=== PATIENT | female | born 1955 | race Caucasian/White ===

== ENCOUNTER 2021-12-23 09:56 | Outpatient (REF) | payer MEDICARE, SELFPAY ==
[2021-12-23 13:31] LABS: MANUAL DIFF FLAG NO
[2021-12-23 13:40] LABS: Basophils Absolute Auto 0.1 X10*3/uL (0.0-0.2); Eosinophils Absolute Auto 0.3 X10*3/uL (0.0-0.4); Eosinophils Percent Auto 4.1 % (0-4); Hematocrit 38.6 % (37.0-47.0); Hemoglobin 11.6 g/dl (12.0-16.0); Imm Gran Abs Auto 0.04 X10*3/uL (0.00-0.03); Imm Gran Pct Auto 0.6 % (0.0-0.4); Lymphocytes Absolute Auto 1.5 X10*3/uL (1.2-4.9); Lymphocytes Percent Auto 21.9 % (20-40); Mean Corpuscular HGB Conc 30.1 g/dl (31.0-35.0); Mean Corpuscular Hemoglobin 25.5 pg (27.0-33.0); Mean Corpuscular Volume 84.8 fL (80.0-98.0); Mean Platelet Volume 12.1 fL (9.4-12.3); Monocytes Absolute Auto 0.5 X10*3/uL (0.1-1.2); Monocytes Percent Auto 7.7 % (2-11); Neutrophils Absolute Auto 4.6 x10*3/uL (2.0-8.3); Neutrophils Percent Auto 64.7 % (45-73); Platelet Count 270 X10*3/uL (160-400); Red Blood Count 4.55 X10*6/uL (4.20-5.50); Red Cell Distribution Width 15.9 % (11.0-16.0)
[2021-12-23 14:20] LABS: Iron 50 mcg/dL (30-160); Percent Iron Saturation 12 % (15-50); Total Iron Binding Capacity 418 mcg/dL (228-428); Unsaturated Iron Binding 368 ug/dL
[2021-12-23 14:40] LABS: Vitamin B12 292 pg/mL (200-900)
[2021-12-23 14:42] LABS: Ferritin 13 ng/mL (10-250)
[2021-12-25 15:17] LABS: Immunoglobulin A 337 mg/dL (70-320)
[2021-12-26 08:27] LABS: Gliadin Deamidated IgA Ab <1.0 U/mL; Gliadin Deamidated IgG Ab <1.0 U/mL
[2021-12-26 14:47] LABS: Transglutaminase Ab IgG 3.8 U/mL; Transglutaminase IgA <1.0 U/mL
[2021-12-30 14:26] LABS: Endomysial IgA Antibody Negative (Negative)
== END 2021-12-23 09:57 | disposition home or self-care (01) ==
LOC: HO.10HDL 09:56
PROVIDERS: Visit Provider Internal Medicine
DX: D50.9 Iron deficiency anemia, unspecified (principal)
CPT/HCPCS: 36415; 82607; 82728; 82746; 82784; 83540; 85025; 86231; 86258; 86364

== ENCOUNTER 2022-02-25 06:30 | Day surgery (SDC) | payer MEDICARE, SELFPAY ==
[2022-02-19 10:14] VITALS: BMI 38.4
[2022-02-25 07:00] VITALS: BMI 38.6
[2022-02-25 07:04] VITALS: BP 137/77; PULSE 65; RESP 17; TEMP 36.8; O2SAT 97
--- NOTE | 2022-02-25 07:26 | HO.ANESPROP2 ---
[facility] Past Medical History Medical History Cardiomyopathy Depression GERD (gastroesophageal reflux disease) Hypothyroidism Persistent atrial fibrillation Sleep apnea Family History Family history of problems with anesthesia: No Surgical History Surgical History H/O colonoscopy History of cardiac defibrillator placement History of esophagogastroduodenoscopy (EGD) Hx of cholecystectomy Hx of tonsillectomy S/P placement of cardiac pacemaker History of Problems with Anesthesia: No Social History Social History (Updated 02/19/22 @ 10:08 by Britatny Richter RN) Patient Tobacco Use Status: Former Tobacco user Quit Date: >10 yr ago Tobacco use type: Cigarette Use of substances other than those prescribed or required for medical reasons: No Are you DNR?: No Advance Directives: No Advance Directives Information Provided: Yes Meds Allergies Allergy/AdvReac Type Severity Reaction Status Date / Time codeine [CODEINE] Allergy Intermediate VOMITING Unverified 03/21/20 15:58 Active Medications: Current Medications Sodium Biphosphate/Sodium Phosphate (Sodium Phosphate,[place]-Dibasic 133 Ml Enema) 133 ml TN ONCE PRN PRN Reason: Poor Colonoscopy Prep Results Home Medications Medication Instructions Recorded Confirmed Last Taken Type apixaban 5 mg tablet (Eliquis) 5 mg PO BID 02/19/22 02/25/22 02/22/22 History atorvastatin 40 mg tablet 40 mg PO BEDTIME 02/19/22 02/19/22 Unknown History citalopram 20 mg tablet 30 mg PO DAILY 02/19/22 02/19/22 02/25/22 History ferrous sulfate 325 mg (65 mg 325 mg PO DAILY 02/19/22 02/25/22 02/18/22 History iron) tablet fluticasone propionate 50 1 spray intranasal BID 02/19/22 02/19/22 Unknown History mcg/actuation nasal spray,suspension levothyroxine 88 mcg tablet 88 mcg PO DAILY 02/19/22 02/19/22 02/25/22 History lorazepam 1 mg tablet 1 mg PO BEDTIME PRN Insomnia 02/19/22 02/19/22 Unknown History omeprazole 40 mg capsule,delayed 40 mg PO DAILY 02/19/22 02/19/22 Unknown History release sotalol 120 mg tablet 120 mg PO BID 02/19/22 02/19/22 02/25/22 History valsartan 80 mg tablet 80 mg PO DAILY 02/19/22 02/19/22 Unknown History Exam Exam Date and Time: February 25, 2022725 Height,Weight and Vital Signs: Height 5 ft 5 in Weight 105.233 kg Last Vital Signs Temp 98.2 F 02/25/22 07:04 Pulse 65 02/25/22 07:04 Resp 17 02/25/22 07:04 BP 137/77 02/25/22 07:04 Pulse Ox 97 02/25/22 07:04 O2 Del Method 02/25/22 07:04 Airway Mallampati Class: IV TM Dist: >3cm Neck ROM: Full Loose/Missing/Broken Teeth: No Heart: rrr Lungs: clear Assessment and Plan Final Anesthetic Review Family History of Problems with Anesthesia: No History of Problems with Anesthesia: No NPO: Yes ASA Class: IV and V Final Preanesthetic Review: No Changes in Pt Med Stat, Meds/Allgs Chart Reviewed, Consent Obtained/Reviewed and Anes Risks/Benef Reviewed Patient Risk: High Procedure Risk: Low Anesthetic Plan Anesthetic Plan: MAC: Disposition: Standard PACU
[2022-02-25] MEDS: Lactated Ringers 1,000 ML 50 ML IVCONT (07:39)
[2022-02-25 08:45] VITALS: BP 102/56; PULSE 82; RESP 16; TEMP 36.7; O2SAT 95
--- NOTE | 2022-02-25 08:49 | P.BOP_ITS ---
Brief Operative Note Date of Service: 02/25/22 Pre-op diagnosis: Screening, Anemia Post-op diagnosis: other (Colon polyp, Hiatal hernia) Procedure: Colonoscopy to the cecum with cold snare polypectomy of a cecal polyp with placement of 1 Resolution clip, and EGD with biopsies Surgeon: Carlos Reid Anesthesia: MAC Was an Entry Level Chemist used for this Procedure?: No Estimated blood loss (mL): 2.0 Pathology: other (A. Cecal polyp B. Descending duodenum) Condition: stable Disposition: PACU
[2022-02-25 09:00] VITALS: BP 105/64; PULSE 64; RESP 16; O2SAT 98
--- NOTE | 2022-02-25 10:09 | OP_ITS ---
SURGEON: Carlos Reid MD INDICATIONS: The patient presents for evaluation of colorectal cancer screening and anemia. Full consent has been obtained from her for this, including risks of bleeding and perforation. PREOPERATIVE DIAGNOSIS: POSTOPERATIVE DIAGNOSIS: PROCEDURE PERFORMED: Colonoscopy to the cecum with cold snare polypectomy and placement of one Resolution clip, and esophagogastroduodenoscopy with biopsies. ESTIMATED BLOOD LOSS: COMPLICATIONS: ANESTHESIA: Monitored anesthesia care. ASSISTANTS: SPECIMENS: PREOPERATIVE DIAGNOSES: Colorectal cancer screening and anemia. POSTOPERATIVE DIAGNOSES: Colorectal cancer screening and anemia, colon polyp, diverticulosis, small internal hemorrhoids, small hiatal hernia, rule out celiac disease. DESCRIPTION OF PROCEDURE: The patient was placed in the left lateral decubitus position. The digital rectal exam revealed no abnormalities. The Olympus video pediatric colonoscope was entered into the rectum and advanced easily to the cecum. Once in the cecum, I did identify cecal pouch with appendiceal orifice and a normal-appearing ileocecal valve. The entire cecum was well visualized. In the cecum was an approximately 5 mm or 6 mm polyp, which was removed by cold snare polypectomy and recovered by suction. The polypectomy site appeared clean, without any sign of residual polyp nor significant bleeding. A single Resolution clip was placed with good deployment and good hemostasis. The scope was then slowly withdrawn assessing all mucosal surfaces carefully. Preparation was excellent. I did not visualize any sign of polyps, colitis, nor angiodysplasia. There was a mild amount of sigmoid diverticulosis. In the rectum, scope was retroflexed visualizing small internal hemorrhoids, but no other pathology. The rectal mucosa appeared normal. The scope was straightened and withdrawn from the patient. She was turned around for upper endoscopy. The Olympus video gastroscope was passed in the posterior oropharynx and upper esophagus under direct vision. The scope was passed slowly into the distal esophagus. The gastroesophageal junction appeared at 37 cm. At this level was evidence of some scarring, but no evidence of any esophagitis, ulceration, nor stricture. The scope easily entered into the stomach. There was a small hiatal hernia. The scope was advanced to pylorus and the duodenum was cannulated to the descending portion. The duodenum including the bulb appeared normal without mass or ulceration. Biopsies were obtained from the 2nd, 3rd portions of duodenum. The scope was withdrawn back in the stomach. The gastric, antrum, and body appeared normal with good peristalsis. The scope was retroflexed visualizing the proximal stomach carefully, which appeared normal, without any sign of mass or ulceration. The scope was straightened and withdrawn back to the esophagus. Again noted was the scarring from her previous history of esophagitis and esophageal stricture. There was no evidence of any recurrent stricture, nor ulceration. The scope was withdrawn through the remainder of the esophagus which appeared normal. The scope was withdrawn from the patient. She tolerated the procedure well and was returned to the recovery area in stable condition. IMPRESSION: 1. Small colon polyp, status post cold snare polypectomy. 2. Diverticulosis. 3. Internal hemorrhoids. 4. Hiatal hernia. 5. Rule out celiac disease. PLAN: The results of the pathology will be checked. If the colon polyp is a tubular adenoma, I would recommend a followup colonoscopy in 5 years. If it is only hyperplastic, I would recommend a followup colonoscopy in 10 years. She will continue her daily omeprazole. She was advised to resume her iron today. She was advised to resume her Eliquis in 48 hours. She will otherwise see me on a p.r.n. basis. MD JOSH Emanuel/ANGEL / [id number]
== END 2022-02-25 10:09 | disposition home or self-care (01) ==
PROVIDERS: PCP Nurse Practitioner Family; Visit Provider Internal Medicine
PROC: (CPT 45385; principal; 2022-02-25 07:30)
DX: Z12.11 Encounter for screening for malignant neoplasm of colon (principal); D12.0 Benign neoplasm of cecum; K57.30 Diverticulosis of large intestine without perforation or abscess without bleeding; K64.8 Other hemorrhoids; D50.9 Iron deficiency anemia, unspecified; K44.9 Diaphragmatic hernia without obstruction or gangrene; K21.9 Gastro-esophageal reflux disease without esophagitis; E03.9 Hypothyroidism, unspecified; G47.33 Obstructive sleep apnea (adult) (pediatric); I48.19 Other persistent atrial fibrillation; I42.8 Other cardiomyopathies; Z95.810 Presence of automatic (implantable) cardiac defibrillator; Z79.01 Long term (current) use of anticoagulants; Z79.899 Other long term (current) drug therapy; Z99.89 Dependence on other enabling machines and devices; Z88.8 Allergy status to other drugs, medicaments and biological substances; Z87.891 Personal history of nicotine dependence
CPT/HCPCS: 45385; 43239; 88305